=== PATIENT | female | born 2000 | race African-American/Black ===

== ENCOUNTER 2024-01-17 20:36 | Emergency (ER) | payer MEDICAID, OTHER ==
[~2024-01-17] VITALS: Ht 162.6 cm; Wt 62.0 kg
[2024-01-17 21:10] VITALS: O2SAT 100
[2024-01-17] MEDS: SODIUM CHLORIDE 0.9% 1000ML BAG (SEPSIS BOLUS) IV ONE (22:01)
[2024-01-17] MEDS ORDERED: AMPICILLIN SOD/SULBACTAM NA 3 G in SODIUM CHLORIDE 0.9% 100 ML IV STA (22:07)
[2024-01-17 22:08] LABS: BASOPHILS % 0.3 % (0.0-2.0); EOSINOPHILS % 0.2 % (0.0-5.0); HEMATOCRIT. 29.3 % (36.0-48.0); HEMOGLOBIN. 9.1 g/dL (12.0-16.0); LYMPHOCYTES % 10.2 % (20.0-50.0); MEAN CORPUSCULAR HEMOGLOBIN 21.5 pg (28.0-32.0); MEAN CORPUSCULAR HGB CONC 31.1 g/dL (31.0-37.0); MEAN PLATELET VOLUME 7.7 fl (7.4-10.4); MONOCYTES % 8.3 % (2.0-8.0); PLATELET 335 x1000/uL (130-400); RED BLOOD CELL COUNT 4.25 mill/uL (4.2-5.4); RED CELL DISTRIBUTION WIDTH 18.1 % (11.6-14.6); WHITE BLOOD COUNT 5.5 x1000/uL (4.5-11.0)
[2024-01-17 22:10] LABS: CHLORIDE 104 mEq/L (98-107); POTASSIUM 3.2 mEq/L (3.5-5.1); SODIUM 137 mEq/L (136-145)
[2024-01-17 22:11] LABS: CALCIUM 9.1 mg/dL (8.7-10.4); CARBON DIOXIDE 27 mEq/L (21-32); DIFFERENTIAL COMMENT 1
[2024-01-17 22:12] LABS: ADD RBC MORPHOLOGY YES
[2024-01-17 22:16] LABS: CREATININE 0.9 mg/dL (0.6-1.0); GLUCOSE 91 mg/dL (70-105); UREA NITROGEN BLOOD 10 mg/dL (9-23)
[2024-01-17 22:17] LABS: LACTATE DEHYDROGENASE 155 IU/L (120-246)
[2024-01-17] MEDS ORDERED: CLINDAMYCIN 600 MG in DEXTROSE 5% WATER 50 ML IV ONE (22:30)
[2024-01-17 22:31] LABS: HYPOCHROMASIA 2+; PLATELET ESTIMATE NORMAL
[2024-01-17 22:32] LABS: ANISOCYTOSIS 1+; MICROCYTOSIS 3+; OVALOCYTES 1+
[2024-01-17] MEDS: CEFTRIAXONE 2GM/50ML 50 ML IV ONE (22:48)
[2024-01-17] MEDS: DEXAMETHASONE 10 MG/ML VIAL IV ONE (22:48)
[2024-01-17 23:05] LABS: HCG SCREEN NEGATIVE
[2024-01-17] MEDS: ACETAMINOPHEN 1000MG/100ML 100 ML IV ONE (23:28)
[2024-01-17] MEDS: CLINDAMYCIN 600MG PREMIX 50 ML IV NR (23:41)
[2024-01-18 01:10] VITALS: TEMP 99.4
[2024-01-18] MEDS ORDERED: IOHEXOL-300 100 ML BOTTLE ONE (01:11)
[2024-01-18 02:04] VITALS: BP 86/43; PULSE 86; RESP 16
[2024-01-18 02:08] LABS: CLARITY URINE CLEAR (CLEAR); COLOR URINE YELLOW (YELLOW); GLUCOSE URINE NEGATIVE (NEGATIVE); KETONES URINE 1+ (NEGATIVE); LEUKOCYTE ESTERASE URINE NEGATIVE (NEGATIVE); NITRITE URINE NEGATIVE (NEGATIVE); OCCULT BLOOD URINE NEGATIVE (NEGATIVE); PROTEIN URINE TRACE (NEGATIVE); SPECIFIC GRAVITY URINE 1.052 (1.005-1.030); UROBILINOGEN URINE 0.2 E.U./dL (0.2-1.0)
[2024-01-18] MEDS ORDERED: IBUP-2029 MT (02:54)
[2024-01-18] MEDS ORDERED: AMOX1TAB16 MT (02:54)
[2024-01-18 03:19] LABS: BACTERIA URINE TRACE; MUCUS URINE 1+ /lpf (< = 2+); RBC URINE 0-2 /hpf (0-2); SQUAMOUS EPITHELIAL CELL URINE 1+ /lpf (RARE/1+); WBC URINE 0-2 /hpf (0-2)
== END 2024-01-18 04:20 | disposition home or self-care (01) ==
LOC: ER 20:36
DX: J03.90 Acute tonsillitis, unspecified (principal); F41.9 Anxiety disorder, unspecified
CPT/HCPCS: 80048; 84703; 87430; 83605; 83615; 85025; 87040; 87070; 36415; 84145; 71045; 96368; 96361; 96365; 96375; 99285; 81003; 87086; 70491; J0696; J1100; J3490; J7030; Z7610; Q9967; J0295; J7050; J7060; J0131